=== PATIENT | male | born 1990 | race Caucasian/White ===

== ENCOUNTER 2022-05-27 16:10 | Emergency (ER) | payer OTHER, SELFPAY ==
[2022-05-27 16:14] VITALS: BP 168/82; PULSE 100; O2SAT 97
[2022-05-27 16:26] VITALS: BP 156/75; BP 168/78; PULSE 90; PULSE 96; RESP 16; TEMP 36.6; O2SAT 97; O2SAT 99; BMI 31.2
--- NOTE | 2022-05-27 16:29 | DI.RAD.S_ITS ---
PROCEDURE: XR CHEST 1V INDICATIONS: chest pain TECHNIQUE: One view of the chest was acquired. COMPARISON: None. FINDINGS: Surgical changes and devices: None. Lungs and pleura: Lungs are clear. No pleural effusions or pneumothorax. Mediastinum: Mediastinal contours appear normal. Heart size is normal. Bones and chest wall: No suspicious bony lesions. Overlying soft tissues appear unremarkable. IMPRESSION: No evidence acute pulmonary process. Dictated by: Edgar Interiano M.D. on 05/27/2022 at 17:04 Approved by: Edgar Interiano M.D. on 05/27/2022 at 17:04
[2022-05-27 16:30] VITALS: PULSE 87; O2SAT 97
--- NOTE | 2022-05-27 16:31 | ED_ITS ---
HPI - Syncope General Chief Complaint: Syncope Stated Complaint: Possible seizure Time Seen by Provider: 05/27/22 16:30 Source: patient, RN notes reviewed and old records reviewed Mode of arrival: EMS Limitations: no limitations History of Present Illness HPI narrative: This is a 31-year-old male with history of prior substance abuse on Suboxone for at least a month. 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 Did not have a fall or any trauma. They brought him down but him on the ground and EMS being present in the next thing he remembers. States he does remember feeling scared that it was sort of Vinh. He thought that he might have had a panic attack that made him pass out. He does note that some years ago he did have seizure-like activity x1 they thought was brought on by sleep deprivation after working extended period of time. Patient states he felt normal today he did have lunch. He states he does not have any headache, no chest pain, no shortness of breath, he denies any numbness, tingling or weakness, difficulty with speech, he denies any nausea or vomiting, he denies any diarrhea, constipation, no dysuria, urgency or frequency. He denies any loss of bowel or bladder control. Patient states he feels a little dry but otherwise feels normal. Patient states that he is receiving Suboxone move his initially but does not have a primary care physician. He states he had a prior back surgery on L4-L5. Also states he had about 40 sutures in his knee when he was 15 from an injury. Patient denies any drug allergies. No tobacco, denies alcohol, states was using narcotics and is not very specific about the timeline but has been on Suboxone for at least a month he states not for 6 months. He denies other recreational drugs besides THC. Related Data Allergies Allergy/AdvReac Type Severity Reaction Status Date / Time vancomycin AdvReac Redness of Verified 05/27/22 18:03 Skin Review of Systems Review of Systems ROS Unobtainable: All systems reviewed & are unremarkable except as noted in HPI and below Exam Narrative Exam Narrative: GEN: well nourished, well appearing male, alert and oriented x 3, patient appears to be in mild distress. HEENT: Atraumatic, pupils are equal round reactive to light, extraocular movements are intact, nares are clear. Throat is clear without any exudates, erythema, tonsillar enlargement or uvular deviation HEART: Regular rate and rhythm without murmur, clicks, rubs. Pulses are equal in upper and lower extremities LUNGS:Lungs clear to auscultation, no wheezes, rales, crackles, chest moves symmetrically, no tachypnea or accessory muscle uses. ABD:bowel sounds normal, soft, non-tender, no guarding, rebound, rigidity, no masses noted, no hepatosplenomegaly :No CVA tenderness MSCL: Non-tender, no muscle atrophy, muscles strength 5/5 upper and lower extremities, full range of motion. NEURO:CN 2-12 intact, sensation normal, reflexes 2/4 upper and lower extremitie s. SKIN: No rash, erythema or other skin changes. Initial Vital Signs Initial Vital Signs: Vital Signs Pulse Rate 100 H 05/27/22 16:14 Blood Pressure 168/82 H 05/27/22 16:14 Pulse Oximetry 97 05/27/22 16:14 Course Orders Ordered: ED Orders 05/27/22 16:29 XR chest 1V Stat 05/27/22 16:42 Complete Blood Count AUTO DIFF Stat Comprehensive Metabolic Panel Stat ETOH [Ethanol (ETOH)] Stat Lipase Stat Magnesium Stat PTT Partial Thromboplastin Justin Stat Prothrombin Time INR Stat Troponin & CK Cardiac Panel Stat EKG-12 Lead Stat 05/27/22 16:55 COVID19 -Nasal RAPID Stat 05/27/22 17:22 Urine Culture Stat Urine Drug Screen, Rapid Stat Urine Microscopic Stat Discontinued Medications Sodium Chloride (Normal Saline 0.9%) 1,000 mls @ 1,000 mls/hr IV BOLUS ONE Stop: 05/27/22 17:38 Last Infusion: 05/27/22 18:03 Dose: 0 mls/hr Documented By: Admin: 05/27/22 16:53 Dose: 1,000 mls/hr Documented By: RB Vital Signs Vital signs: Vital Signs - 8 hr 05/27/22 16:26 05/27/22 16:14 05/27/22 16:14 Temperature 97.8 F Pulse Rate 96 H 100 H Respiratory Rate 16 Blood Pressure 168/78 H 168/82 H Pulse Oximetry 99 97 Oxygen Delivery Method Room Air 05/27/22 16:26 05/27/22 16:26 05/27/22 16:30 Temperature Pulse Rate 90 87 Respiratory Rate Blood Pressure 156/75 H Pulse Oximetry 97 97 Oxygen Delivery Method 05/27/22 17:00 05/27/22 17:23 05/27/22 17:23 Temperature Pulse Rate 78 Respiratory Rate 14 16 Blood Pressure 147/74 H Pulse Oximetry 98 97 Oxygen Delivery Method 05/27/22 18:14 Temperature Pulse Rate 78 Respiratory Rate 22 Blood Pressure 135/68 Pulse Oximetry 96 Oxygen Delivery Method Room Air MDM - Syncope Lab Data 05/27/22 16:42 05/27/22 16:42 Labs: Lab Results 05/27/22 05/27/22 05/27/22 Range/Units 16:42 16:42 16:42 WBC 10.8 (4.5-11.0) X10^3/uL RBC 4.84 (4.5-5.9) X10^6/uL Hgb 15.2 (13.5-17.5) g/dL Hct 43.4 (41-53) % MCV 89.7 (80-100) fL MCH 31.4 (26-34) PG MCHC 35.0 (30-36) % RDW 13.1 (11.6-14.8) % Plt Count 229 (150-400) X10^3/uL Neut % (Auto) 63.5 (50-75) % Lymph % (Auto) 25.1 (25-40) % [place] % (Auto) 8.5 (3-14) % Eos % (Auto) 2.4 (2-4) % Baso % (Auto) 0.5 (0-2) % Neut # (Auto) 6900 (5131-2478) /uL Lymph # (Auto) 2700 (7626-6870) /uL [place] # (Auto) 900 (0-900) /uL Eos # (Auto) 300 (0-450) /uL Baso # (Auto) 100 (0-100) /uL PT 11.9 (10.1-12.7) SECONDS INR 1.0 (0.9-1.3) APTT 34 (26-36) SECONDS Sodium 140 (137-145) mmol/L Potassium 4.0 (3.4-5.1) mmol/L Chloride 102 (98-107) mmol/L Carbon Dioxide 23 (22-32) mmol/L BUN 12 (9-20) mg/dL Creatinine 0.67 (0.66-1.25) mg/dL Estimated GFR > 60 (>60) mL/min BUN/Creatinine Ratio 17.9 (6-22) Glucose 89 (70-100) mg/dL Calcium 8.9 (8.4-10.2) mg/dL Magnesium 1.9 (1.6-2.3) mg/dL Total Bilirubin 0.4 (0.2-1.3) mg/dL AST 41 (17-59) IU/L ALT 34 (<50) IU/L Alkaline Phosphatase 71 (38-126) U/L Total Creatine Kinase 213 H (55-170) U/L CK-MB (CK-2) 3.19 H (<2.37) ng/mL CK-MB (CK-2) Rel Index 1.5 (1.5-5.0) % Troponin I < 0.012 (0.01-0.034) ng/mL Total Protein 7.3 (6.3-8.2) g/dL Albumin 4.4 (3.5-5.0) g/dL Globulin 2.9 (1.7-4.1) g/dL Albumin/Globulin Ratio 1.5 (1.0-2.8) Lipase 31 (23-300) U/L Urine RBC (0-5/HPF) Urine WBC (0-5/HPF) Urine Bacteria (None) Urine Sperm Ur Culture Indicated? U Opiates 300ng/mL cut (Negative) Ur Oxycodone Screen (Negative) Urine Methadone Screen (Negative) Ur Barbiturates Screen (Negative) U Tricyclic Antidepress (Negative) Ur Phencyclidine Scrn (Negative) Ur Amphetamines Screen (Negative) U Methamphetamines Scrn (Negative) Ur MDMA Scrn (Ecstasy) (Negative) U Benzodiazepines Scrn (Negative) Urine Cocaine Screen (Negative) U Marijuana (THC) Screen (Negative) Ethyl Alcohol ( - 10) mg/dL SARS-CoV-2 (PCR) (Negative) 05/27/22 05/27/22 05/27/22 Range/Units 16:42 16:55 17:22 WBC (4.5-11.0) X10^3/uL RBC (4.5-5.9) X10^6/uL Hgb (13.5-17.5) g/dL Hct (41-53) % MCV (80-100) fL MCH (26-34) PG MCHC (30-36) % RDW (11.6-14.8) % Plt Count (150-400) X10^3/uL Neut % (Auto) (50-75) % Lymph % (Auto) (25-40) % [place] % (Auto) (3-14) % Eos % (Auto) (2-4) % Baso % (Auto) (0-2) % Neut # (Auto) (6854-8505) /uL Lymph # (Auto) (5772-7439) /uL [place] # (Auto) (0-900) /uL Eos # (Auto) (0-450) /uL Baso # (Auto) (0-100) /uL PT (10.1-12.7) SECONDS INR (0.9-1.3) APTT (26-36) SECONDS Sodium (137-145) mmol/L Potassium (3.4-5.1) mmol/L Chloride (98-107) mmol/L Carbon Dioxide (22-32) mmol/L BUN (9-20) mg/dL Creatinine (0.66-1.25) mg/dL Estimated GFR (>60) mL/min BUN/Creatinine Ratio (6-22) Glucose (70-100) mg/dL Calcium (8.4-10.2) mg/dL Magnesium (1.6-2.3) mg/dL Total Bilirubin (0.2-1.3) mg/dL AST (17-59) IU/L ALT (<50) IU/L Alkaline Phosphatase (38-126) U/L Total Creatine Kinase (55-170) U/L CK-MB (CK-2) (<2.37) ng/mL CK-MB (CK-2) Rel Index (1.5-5.0) % Troponin I (0.01-0.034) ng/mL Total Protein (6.3-8.2) g/dL Albumin (3.5-5.0) g/dL Globulin (1.7-4.1) g/dL Albumin/Globulin Ratio (1.0-2.8) Lipase (23-300) U/L Urine RBC (0-5/HPF) Urine WBC (0-5/HPF) Urine Bacteria (None) Urine Sperm Ur Culture Indicated? U Opiates 300ng/mL cut Negative (Negative) Ur Oxycodone Screen Negative (Negative) Urine Methadone Screen Negative (Negative) Ur Barbiturates Screen Negative (Negative) U Tricyclic Antidepress Negative (Negative) Ur Phencyclidine Scrn Negative (Negative) Ur Amphetamines Screen Negative (Negative) U Methamphetamines Scrn Negative (Negative) Ur MDMA Scrn (Ecstasy) Positive H (Negative) U Benzodiazepines Scrn Positive H (Negative) Urine Cocaine Screen Positive H (Negative) U Marijuana (THC) Screen Negative (Negative) Ethyl Alcohol < 10 ( - 10) mg/dL SARS-CoV-2 (PCR) Negative (Negative) 05/27/22 Range/Units 17:22 WBC (4.5-11.0) X10^3/uL RBC (4.5-5.9) X10^6/uL Hgb (13.5-17.5) g/dL Hct (41-53) % MCV (80-100) fL MCH (26-34) PG MCHC (30-36) % RDW (11.6-14.8) % Plt Count (150-400) X10^3/uL Neut % (Auto) (50-75) % Lymph % (Auto) (25-40) % [place] % (Auto) (3-14) % Eos % (Auto) (2-4) % Baso % (Auto) (0-2) % Neut # (Auto) (4803-6976) /uL Lymph # (Auto) (6591-0005) /uL [place] # (Auto) (0-900) /uL Eos # (Auto) (0-450) /uL Baso # (Auto) (0-100) /uL PT (10.1-12.7) SECONDS INR (0.9-1.3) APTT (26-36) SECONDS Sodium (137-145) mmol/L Potassium (3.4-5.1) mmol/L Chloride (98-107) mmol/L Carbon Dioxide (22-32) mmol/L BUN (9-20) mg/dL Creatinine (0.66-1.25) mg/dL Estimated GFR (>60) mL/min BUN/Creatinine Ratio (6-22) Glucose (70-100) mg/dL Calcium (8.4-10.2) mg/dL Magnesium (1.6-2.3) mg/dL Total Bilirubin (0.2-1.3) mg/dL AST (17-59) IU/L ALT (<50) IU/L Alkaline Phosphatase (38-126) U/L Total Creatine Kinase (55-170) U/L CK-MB (CK-2) (<2.37) ng/mL CK-MB (CK-2) Rel Index (1.5-5.0) % Troponin I (0.01-0.034) ng/mL Total Protein (6.3-8.2) g/dL Albumin (3.5-5.0) g/dL Globulin (1.7-4.1) g/dL Albumin/Globulin Ratio (1.0-2.8) Lipase (23-300) U/L Urine RBC 0-1/hpf (0-5/HPF) Urine WBC 0-1/hpf (0-5/HPF) Urine Bacteria Occasional (0-1) (None) Urine Sperm Present Ur Culture Indicated? Cult not indicated U Opiates 300ng/mL cut (Negative) Ur Oxycodone Screen (Negative) Urine Methadone Screen (Negative) Ur Barbiturates Screen (Negative) U Tricyclic Antidepress (Negative) Ur Phencyclidine Scrn (Negative) Ur Amphetamines Screen (Negative) U Methamphetamines Scrn (Negative) Ur MDMA Scrn (Ecstasy) (Negative) U Benzodiazepines Scrn (Negative) Urine Cocaine Screen (Negative) U Marijuana (THC) Screen (Negative) Ethyl Alcohol ( - 10) mg/dL SARS-CoV-2 (PCR) (Negative) Urine Dip Bedside Urine Glucose Negative Bedside Urine Bilirubin - Negative Bedside Urine Ketone - Negative Urine Specific Ava 1.030 Bedside Urine Occult Blood - Negative Bedside Urine pH 6.0 Bedside Urine Protein + 30 Bedside Urine Urobilinogen - Negative Bedside Urine Nitrite - Negative Bedside Urine Leukocytes - Negative Esterase Imaging Data Chest x-ray: Radiologist's Impression: [address] [address] XRay Report Signed Patient: Leo Meléndez MR#: [id number] : 1990 Acct:[id number] Age/Sex: 31 / M Date of Service: 05/27/22 Loc: ED Accession Number: [id number] ?? Procedure: XR chest 1V Ordering Provider: Alexus Pascual D.O. PROCEDURE:? XR CHEST 1V ? INDICATIONS:? chest pain ? TECHNIQUE:? One view of the chest was acquired.? ? COMPARISON:? None. ? FINDINGS:? ? Surgical changes and devices:? None.? ? Lungs and pleura:? Lungs are clear.? No pleural effusions or pneumothorax.? ? Mediastinum:? Mediastinal contours appear normal.? Heart size is normal.? ? Bones and chest wall:? No suspicious bony lesions.? Overlying soft tissues appear unremarkable.? ? IMPRESSION:? No evidence acute pulmonary process. ? ? ? Dictated by: Edgar Interiano M.D. on 05/27/2022 at 17:04 ? ? Approved by: Edgar Interiano M.D. on 05/27/2022 at 17:04?? ECG Data Attestation: I personally reviewed and interpreted this ECG as follows: Prior ECG tracings: not available for review Interpretation: Normal sinus rhythm rate 89 AL 170 QRS of 104 QTC 486. Q-wave in lead 3, no acute ST elevation or depression noted. No priors available for comparison. MDM Narrative Medical decision making narrative: This is a 31-year-old male who presents with possible syncopal versus other episode with loss of consciousness. Patient states he felt normal prior to, he has had a history of prior seizure episode x1 that he describes being related to sleep deprivation. He is currently on Suboxone, patient is alert, appropriate, has no acute neurologic changes. Labs, EKG, chest x-ray were obtained acute changes. EKG shows normal sinus rhythm. Patient positive for MDMA, benzos and cocaine. Patient states he has used somewhat recently. Discussed that today could have been syncopal versus seizure activity do not recommend high-risk activities at this time but likely related to his ingestion. Patient is felt medically safe for discharge at this time he has been ambulating in the department and no additional episodes or changes. Discharge Plan Departure Patient Disposition: Home Clinical Impression: Acute alteration in mental status, Cocaine abuse Instructions: DI for Syncope in Adults (Fainting) Activity Restrictions/Additional Instructions: Please follow-up for recheck, please call to set up an appointment with a primary care. You may have had a syncopal episode or passed out but there is a possibility that you may have had seizure activity, this is likely related to recent drug ingestion. I would recommend driving, working in hazardous or high-risk activities until you have been cleared medically. Make sure you are drinking plenty of fluids. Please return for new or recurrent episodes, severe headaches, new chest pain, shortness of breath, persistent vomiting, lightheadedness or passing out, new swelling in your or other new or concerning changes. Stand Alone Forms: Patient Portal/API, Work Release Note
[2022-05-27] MEDS: SODIUM CHLORIDE 0.9% 1,000 ML 1000 ML IV (16:53)
[2022-05-27 16:54] LABS: Add Manual Diff / Slide Review NO; Basophils Absolute Auto 100 /uL (0-100); Basophils Percent Auto 0.5 % (0-2); Eosinophils Absolute Auto 300 /uL (0-450); Eosinophils Percent Auto 2.4 % (2-4); Hematocrit 43.4 % (41-53); Hemoglobin 15.2 g/dL (13.5-17.5); Lymphocytes Absolute Auto 2700 /uL (1100-4500); Lymphocytes Percent Auto 25.1 % (25-40); Mean Corpuscular Hemoglobin 31.4 PG (26-34); Mean Corpuscular Volume 89.7 fL (80-100); Monocytes Absolute Auto 900 /uL (0-900); Monocytes Percent Auto 8.5 % (3-14); Neutrophils Absolute Auto 6900 /uL (1500-7000); Neutrophils Percent Auto 63.5 % (50-75); Platelet Count 229 X10^3/uL (150-400); Red Blood Cell Count 4.84 X10^6/uL (4.5-5.9); Red Cell Distribution Width 13.1 % (11.6-14.8); White Blood Cell Count 10.8 X10^3/uL (4.5-11.0)
[2022-05-27 16:59] LABS: Prothrombin Time 11.9 SECONDS (10.1-12.7)
[2022-05-27 17:00] VITALS: RESP 14; O2SAT 98
[2022-05-27 17:02] LABS: PTT Partial Thromboplastin Tim 34 SECONDS (26-36)
[2022-05-27 17:06] LABS: Ethanol (ETOH) < 10 mg/dL
[2022-05-27 17:08] LABS: Alanine Aminotransferase 34 IU/L (<50); Albumin 4.4 g/dL (3.5-5.0); Albumin Globulin Ratio 1.5 (1.0-2.8); Alkaline Phosphatase 71 U/L (38-126); Aspartate Aminotransferase 41 IU/L (17-59); BUN Creatinine Ratio 17.9 (6-22); Bilirubin Total 0.4 mg/dL (0.2-1.3); Blood Urea Nitrogen 12 mg/dL (9-20); Calcium 8.9 mg/dL (8.4-10.2); Carbon Dioxide 23 mmol/L (22-32); Chloride 102 mmol/L (98-107); Creatine Kinase 213 U/L (55-170); Estimated Glomerular Filt Rate > 60 mL/min (>60); Globulin 2.9 g/dL (1.7-4.1); Glucose 89 mg/dL (70-100); HEMOLYSIS 25 (0-50); Lipase 31 U/L (23-300); Magnesium 1.9 mg/dL (1.6-2.3); Sodium 140 mmol/L (137-145); Total Protein 7.3 g/dL (6.3-8.2)
[2022-05-27 17:19] LABS: COVID19 -Nasal RAPID Negative (Negative)
[2022-05-27 17:19] LABS: Troponin I < 0.012 ng/mL (0.01-0.034)
[2022-05-27 17:22] LABS: CKMB % Relative Index 1.5 % (1.5-5.0); Creatine Kinase MB 3.19 ng/mL (<2.37)
[2022-05-27 17:23] VITALS: BP 147/74; PULSE 78; RESP 16; O2SAT 97
[2022-05-27 17:59] LABS: UR Morphine/Opiate cutoff 300 Negative (Negative); Ur Creatinine Normal (Normal); Ur Specific Gravity Normal (Normal); Urine Amphetamines Negative (Negative); Urine Barbiturates Negative (Negative); Urine Benzodiazepines Positive (Negative); Urine Cocaine Positive (Negative); Urine MDMA Positive (Negative); Urine Methadone Negative (Negative); Urine Methamphetamines Negative (Negative); Urine Oxycodone Negative (Negative); Urine Phencyclidine Negative (Negative); Urine Tetrahydrocannabinol Negative (Negative); Urine Tricyclic Antidepressant Negative (Negative); Urine pH Normal (Normal)
[2022-05-27 18:01] LABS: Bacteria Urine Occasional (0-1); Culture Indicated Urine Cult Not Indicated; RBC Urine 0-1/HPF (0-5/HPF); Sperm Urine PRESENT; WBC Urine 0-1/HPF (0-5/HPF)
[2022-05-27 18:14] VITALS: BP 135/68; PULSE 78; RESP 22; O2SAT 96
== END 2022-05-27 18:15 | disposition home or self-care (01) ==
PROVIDERS: Emergency Provider Emergency Medicine
DX: R41.82 Altered mental status, unspecified (principal); R07.9 Chest pain, unspecified; F14.10 Cocaine abuse, uncomplicated; Z20.822 Contact with and (suspected) exposure to COVID-19
CPT/HCPCS: 36415; 71045; 80053; 80305; 80320; 81003; 81015; 82550; 82553; 83690; 83735; 84484; 85025; 85610; 85730; 87086; 87635; 93005; 99284; C9803